=== PATIENT | male | born 1985 | race African-American/Black ===

== ENCOUNTER 2016-10-09 01:20 | Emergency (ER) | payer OTHER ==
[~2016-10-09] VITALS: Ht 193 cm; Wt 136.1 kg
[~2016-10-09 01:20] MED LIST: ACULAR 3 ML3 M1 OP; ACULAR 3 ML3 ML OPH; ADDERALL30 MG PO; CYCLOBENZAPRINE10 MG PO; DOLOBID500 MG PO; GEODON60 MG PO; HYDROCODONE BIT1 T11 PO; MEDROL DOSEPAK4 MG PO; PREDNISONE20 MG PO; ROBITUSSIN AC 110 ML PO; TOBREX OPHTH S2.5 ML OPH; Tobrex Ophth S2.5 ML OPH; VIBRAMYCIN100 MG PO; VICODIN 5/500 505 MG PO; VOLTAREN50 M1 PO; XANAX2 MG PO
[2016-10-09] MEDS ORDERED: AUGMENTIN 875875 MG PO (01:43)
== END 2016-10-09 01:48 | disposition home or self-care (01) ==
LOC: ED 01:20
DX: H66.92 Otitis media, unspecified, left ear (principal); F17.200 Nicotine dependence, unspecified, uncomplicated

== ENCOUNTER 2017-03-07 03:07 | Emergency (ER) | payer OTHER ==
[~2017-03-07] VITALS: Ht 193 cm; Wt 136.1 kg
[~2017-03-07 03:07] MED LIST changes: +AUGMENTIN 875875 MG PO
[2017-03-07] MEDS ORDERED: ANAPROX DS550 MG PO (05:13)
[2017-03-07] MEDS ORDERED: Orphenadrine C100 MG PO (05:13)
== END 2017-03-07 05:36 | disposition home or self-care (01) ==
LOC: ED 03:07
DX: S29.012A Strain of muscle and tendon of back wall of thorax, initial encounter (principal); X50.9XXA Other and unspecified overexertion or strenuous movements or postures, initial encounter; Y93.89 Activity, other specified; Y92.9 Unspecified place or not applicable; Y99.9 Unspecified external cause status

== ENCOUNTER 2017-07-02 23:15 | Emergency (ER) | payer OTHER ==
[~2017-07-02] VITALS: Ht 193 cm; Wt 136.1 kg
[~2017-07-02 23:15] MED LIST changes: +ANAPROX DS550 MG PO; +Orphenadrine C100 MG PO
[2017-07-03] MEDS ORDERED: AUGMENTIN 875875 MG PO (00:05)
== END 2017-07-03 00:14 | disposition home or self-care (01) ==
LOC: ED 23:15
DX: K08.89 Other specified disorders of teeth and supporting structures (principal); H66.92 Otitis media, unspecified, left ear; F17.200 Nicotine dependence, unspecified, uncomplicated

== ENCOUNTER 2017-12-16 01:21 | Emergency (ER) | payer OTHER ==
[~2017-12-16] VITALS: Ht 193 cm; Wt 136.1 kg
[2017-12-16] MEDS ORDERED: KETOROLAC10 MG PO (02:04)
[2017-12-16] MEDS ORDERED: Orphenadrine C100 MG PO (02:04)
[2017-12-16] MEDS ORDERED: PREDNISONE20 M1 PO (02:11)
== END 2017-12-16 02:49 | disposition home or self-care (01) ==
LOC: ED 01:21
DX: M54.41 Lumbago with sciatica, right side (principal); F17.200 Nicotine dependence, unspecified, uncomplicated; G89.29 Other chronic pain; M79.604 Pain in right leg

== ENCOUNTER 2018-01-18 17:48 | Emergency (ER) | payer OTHER ==
[~2018-01-18] VITALS: Ht 193 cm; Wt 136.1 kg
[~2018-01-18 17:48] MED LIST changes: +KETOROLAC10 MG PO; +PREDNISONE20 M1 PO
[2018-01-18] MEDS ORDERED: PREDNISONE20 M1 PO (18:29)
[2018-01-18] MEDS ORDERED: ROBAXIN500 M1 PO (18:29)
== END 2018-01-18 20:22 | disposition left against medical advice (07) ==
LOC: ED 17:48
DX: M54.5 Low back pain (principal)

== ENCOUNTER → 2018-07-06 | Outpatient (CLI) | payer OTHER ==
[~2018-07-06] MED LIST changes: +ROBAXIN500 M1 PO
== END | disposition home or self-care (01) ==
LOC: RAD 09:41
DX: M43.22 Fusion of spine, cervical region (principal); V89.2XXD Person injured in unspecified motor-vehicle accident, traffic, subsequent encounter

== ENCOUNTER → 2018-07-26 | Outpatient (CLI) | payer OTHER | END | disposition home or self-care (01) | LOC: CARD 10:30 | DX: I08.1 Rheumatic disorders of both mitral and tricuspid valves (principal); R93.89 Abnormal findings on diagnostic imaging of other specified body structures ==

== ENCOUNTER → 2018-08-23 | Outpatient (CLI) | payer OTHER | END | disposition home or self-care (01) | LOC: RAD 13:21 | DX: M43.22 Fusion of spine, cervical region (principal) ==

== ENCOUNTER 2018-11-16 18:09 | Emergency (ER) | payer OTHER ==
[~2018-11-16] VITALS: Ht 193 cm; Wt 136.1 kg
[2018-11-16] MEDS ORDERED: KETOROLAC10 MG PO (18:30)
[2018-11-16] MEDS ORDERED: CYCLOBENZAPRINE5 M3 PO (18:30)
== END 2018-11-16 18:37 | disposition home or self-care (01) ==
LOC: ED 18:09
DX: M54.16 Radiculopathy, lumbar region (principal); Z79.899 Other long term (current) drug therapy

== ENCOUNTER 2020-02-18 21:58 | Emergency (ER) | payer OTHER ==
[~2020-02-18] VITALS: Ht 193 cm; Wt 136.1 kg
[~2020-02-18 21:58] MED LIST changes: +CYCLOBENZAPRINE5 M3 PO
== END 2020-02-18 22:32 | disposition home or self-care (01) ==
LOC: ED 21:58
DX: S05.01XA Injury of conjunctiva and corneal abrasion without foreign body, right eye, initial encounter (principal); F41.9 Anxiety disorder, unspecified; F32.9 Major depressive disorder, single episode, unspecified; F17.200 Nicotine dependence, unspecified, uncomplicated; Z79.899 Other long term (current) drug therapy; X58.XXXA Exposure to other specified factors, initial encounter; Y93.89 Activity, other specified; Y92.89 Other specified places as the place of occurrence of the external cause; Y99.8 Other external cause status

== ENCOUNTER 2022-04-02 01:22 | Emergency (ER) | payer OTHER ==
[~2022-04-02] VITALS: Ht 193 cm; Wt 136.1 kg
[2022-04-02] MEDS ORDERED: NAPROXEN250 MG PO (01:44)
[2022-04-02] MEDS ORDERED: METHOCARBAMOL750 M1 PO (01:44)
== END 2022-04-02 01:55 | disposition home or self-care (01) ==
LOC: ED 01:22
DX: S39.012A Strain of muscle, fascia and tendon of lower back, initial encounter (principal); M54.31 Sciatica, right side; F17.200 Nicotine dependence, unspecified, uncomplicated; X58.XXXA Exposure to other specified factors, initial encounter; Y93.89 Activity, other specified; Y92.89 Other specified places as the place of occurrence of the external cause; Y99.8 Other external cause status

== ENCOUNTER 2024-08-20 06:59 | Emergency (ER) | payer BC ==
[~2024-08-20] VITALS: Ht 193 cm; Wt 136.1 kg
[~2024-08-20 06:59] MED LIST changes: +METHOCARBAMOL750 M1 PO; +NAPROXEN250 MG PO
[2024-08-20 07:39] LABS: BILIRUBIN Negative (Negative); BLOOD Negative (Negative); CLARITY Clear (Clear); COLOR Yellow (Yellow); GLUCOSE Negative (Negative); KETONE Trace (Negative); LEUKO ESTERASE Negative (Negative); NITRITE Negative (Negative); SPECIFIC GRAVITY 1.025 (1.001-1.030); UROBILINOGEN 0.2 E.U./dl (0.0-1.0)
[2024-08-20 07:56] LABS: BACTERIA TRACE; EPITHELIAL CELLS 0-2; MUCOUS 2+; RBC 0-2 rbc/hpf (0-2); WBC 0-2 wbc/hpf (0-5)
[2024-08-20] MEDS ORDERED: Ketorolac Tromethamine 30 MG/ML VIAL IM ONE (11:00)
[2024-08-20] MEDS ORDERED: FLOMAX0.4 MG PO (11:05)
[2024-08-20] MEDS ORDERED: PREDNISONE20 M1 PO (11:06)
== END 2024-08-20 11:14 | disposition home or self-care (01) ==
LOC: ED 06:59
PROVIDERS: Emergency Medicine
DX: S29.012A Strain of muscle and tendon of back wall of thorax, initial encounter (principal); N40.1 Benign prostatic hyperplasia with lower urinary tract symptoms; R39.15 Urgency of urination; M43.22 Fusion of spine, cervical region; F41.9 Anxiety disorder, unspecified; F32.A Depression, unspecified; F17.200 Nicotine dependence, unspecified, uncomplicated; X58.XXXA Exposure to other specified factors, initial encounter; Y93.9 Activity, unspecified; Y92.89 Other specified places as the place of occurrence of the external cause; Y99.8 Other external cause status

== ENCOUNTER 2025-04-29 06:56 | Emergency (ER) | payer OTHER ==
[~2025-04-29 06:56] MED LIST changes: +FLOMAX0.4 MG PO
[2025-04-29] MEDS ORDERED: Dexamethasone Sodium Phospha 20 MG/5 ML VIAL IM ONE (07:30)
== END 2025-04-29 08:36 | disposition home or self-care (01) ==
LOC: ED 06:56
DX: M54.50 Low back pain, unspecified (principal); Z79.899 Other long term (current) drug therapy; F32.A Depression, unspecified; F41.9 Anxiety disorder, unspecified

== ENCOUNTER 2025-05-01 06:58 | Emergency (ER) | payer OTHER ==
[~2025-05-01] VITALS: Ht 193 cm; Wt 136.1 kg
[2025-05-01] MEDS ORDERED: METHOCARBAMOL750 M1 PO (11:18)
[2025-05-01] MEDS ORDERED: PREDNISONE20 M1 PO (11:18)
== END 2025-05-01 11:36 | disposition home or self-care (01) ==
LOC: ED 06:58
DX: M54.16 Radiculopathy, lumbar region (principal)

== ENCOUNTER → 2025-05-06 | Outpatient (CLI) | payer OTHER ==
[2025-05-06 11:29] LABS: MEAN CELL VOLUME 92.1 fl (80.0-94.0); MEAN CORPUSCULAR HGB 31.0 pg (27.0-31.0); MEAN PLATELET VOLUME 8.6 fl (9.6-12.3); NUCLEATED RED BLOOD CELL 0.0 % (0.0-0.0); NUCLEATED RED BLOOD CELL 0.0 10*3/uL (0.0-0.0); PLATELET COUNT AUTOMATED 318.0 10*3/uL (130-400); RED CELL DISTRI WIDTH 13.1 % (0-14.5)
[2025-05-06 12:09] LABS: BUN 13 mg/dl (9-23); CPK 274 U/L (34-171); LDL CHOLESTEROL 64 mg/dL (9-159); SGPT/ALT 16 U/L (5-49)
[2025-05-06 12:13] LABS: VITAMIN D, 25-HYDROXY 24.3 ng/mL (30-100)
== END | disposition home or self-care (01) ==
LOC: LAB 11:04
PROVIDERS: ATTEND Family Medicine
DX: M47.816 Spondylosis without myelopathy or radiculopathy, lumbar region (principal); M25.78 Osteophyte, vertebrae; E74.9 Disorder of carbohydrate metabolism, unspecified; E55.9 Vitamin D deficiency, unspecified; R53.83 Other fatigue

== ENCOUNTER 2025-05-13 06:53 | Emergency (ER) | payer OTHER ==
[~2025-05-13] VITALS: Ht 193 cm; Wt 134.3 kg
[2025-05-13] MEDS ORDERED: METHOCARBAMOL 750 MG TAB PO ONE (08:10)
[2025-05-13] MEDS ORDERED: predniSONE 20 MG TAB PO ONE (08:10)
[2025-05-13] MEDS ORDERED: Ondansetron Hydrochloride 4 MG TAB PO ONE (08:10)
[2025-05-13] MEDS ORDERED: HYDROmorphONE Hydrochloride 0.5 MG/0.5 ML SYRINGE IM ONE (08:10)
[2025-05-13] MEDS ORDERED: PREDNISONE20 M1 PO (08:16)
[2025-05-13] MEDS ORDERED: METHOCARBAMOL750 M1 PO (08:16)
== END 2025-05-13 08:52 | disposition home or self-care (01) ==
LOC: ED 06:53
DX: M54.41 Lumbago with sciatica, right side (principal); F41.9 Anxiety disorder, unspecified; F32.A Depression, unspecified; F17.210 Nicotine dependence, cigarettes, uncomplicated

== ENCOUNTER 2025-06-01 21:23 | Emergency (ER) | payer OTHER ==
[~2025-06-01] VITALS: Ht 193 cm; Wt 136.1 kg
[2025-06-01] MEDS ORDERED: PREDNISONE20 M1 PO (22:04)
[2025-06-01] MEDS ORDERED: METHOCARBAMOL750 M1 PO (22:04)
[2025-06-01] MEDS ORDERED: Acetaminophen/Oxycodone 5 MG/325 MG TABLET PO ONE (22:05)
[2025-06-01] MEDS ORDERED: Water, Sterile 10 ML VIAL ONE (22:33)
== END 2025-06-01 22:38 | disposition home or self-care (01) ==
LOC: ED 21:23
DX: M54.41 Lumbago with sciatica, right side (principal); F41.9 Anxiety disorder, unspecified; F32.A Depression, unspecified; Z79.899 Other long term (current) drug therapy